=== PATIENT | female | born 1965 | race Two or more races ===

== ENCOUNTER 2024-09-27 13:12 | Inpatient (IN) | payer OTHER ==
[~2024-09-27] VITALS: Ht 167.6 cm; Wt 48.5 kg
[2024-09-27] MEDS ORDERED: ACETAMINOPHEN 650 MG/SUPP.RECT RC ONE (13:33)
[2024-09-27 13:43] LABS: BASOPHILS % (AUTO) 0.1 % (0.0-2.0); HEMATOCRIT 44 % (33-45); HEMOGLOBIN 14.6 g/dL (11.5-14.8); LYMPHOCYTES # (AUTO) 2.1 K/uL (0.8-4.8); LYMPHOCYTES % (AUTO) 11.8 % (20.0-44.0); MEAN CORPUSCULAR HEMOGLOBIN 31 PG (26.0-33.0); MEAN CORPUSCULAR HGB CONC 33 g/dl (31.0-36.0); MEAN CORPUSCULAR VOLUME 93 fL (82-100); MONOCYTES # (AUTO) 2.4 K/uL (0.1-1.30); MONOCYTES % (AUTO) 13.7 % (2.0-12.0); NEUTROPHILS # (AUTO) 13.2 K/uL (1.8-8.9); NEUTROPHILS % (AUTO) 74.4 % (43.0-81.0); PLATELET COUNT (AUTO) 245 K/uL (150-450); RED BLOOD CELL COUNT(AUTO) 4.76 MIL/uL (4.0-5.2); RED CELL DISTRIBUTION WIDTH 15.3 % (11.5-15.0); WHITE BLOOD COUNT (AUTO) 17.8 K/uL (4.3-11.0)
[2024-09-27 13:45] VITALS: O2SAT 95
[2024-09-27] MEDS ORDERED: PIPERACI/TAZO 3.375GM/D5W 50ML PB IV ONE (13:53)
[2024-09-27 14:06] LABS: ALANINE AMINOTRANSFERASE 20 U/L (12-78); ALBUMIN 2.8 g/dL (3.4-5.0); ALKALINE PHOSPHATASE 139 U/L (46-116); ASPARTATE AMINOTRANSFERASE 36 U/L (15-37); BILIRUBIN,DIRECT 0.1 mg/dL (0.0-0.2); BILIRUBIN,TOTAL 0.3 mg/dL (0.2-1.0); CALCIUM, SERUM 9.6 mg/dL (8.5-10.1); CHLORIDE 105 mmol/L (98-107); GLUCOSE 264 mg/dL (74-106); POTASSIUM 3.6 mmol/L (3.5-5.1); SODIUM SERUM 146 mmol/L (136-145); TOTAL PROTEIN, SERUM 9.2 g/dL (6.4-8.2); UREA NITROGEN, BLOOD 25 mg/dL (7-18)
[2024-09-27] MEDS: PIPERACILLIN /TAZOBACTAM 3.375 G in IV D5W 50 ML IV ONE (14:08)
[2024-09-27] MEDS: ACETAMINOPHEN 650 MG/SUPP.RECT RC ONE (14:08)
[2024-09-27] MEDS: IV NS 0.9% 1,000 ML BAG IV ONE ×2 (14:08→18:45)
[2024-09-27 14:14] LABS: INR 2.47 (0.91-1.10); PARTIAL THROMBOPLASTIN TIME 39.8 SEC (24.3-34.3); PROTHROMBIN TIME 24.7 SECS (9.2-11.1)
[2024-09-27 14:15] LABS: CARBON DIOXIDE 22 mmol/L (21-32)
[2024-09-27] MEDS ORDERED: VANCOMYCIN 1 GM /D5W 250 ML PB IV ONE (14:23)
[2024-09-27 14:25] LABS: LACTIC ACID 8.3 mmol/L (0.4-2.0)
[2024-09-27] MEDS: AZITHROMYCIN 500 MG in IV D5W 250 ML IV ONE (14:30)
[2024-09-27] MEDS: VANCOMYCIN 1 GM in IV D5W 250 ML IV ONE (14:39)
[2024-09-27 15:05] LABS: ABG BASE EXCESS -4.7 mmol/L (-2.0-3.0); ABG OXYGEN SATURATION 82.1 % (94.0-98.0); ABG PCO2 32.9 mmHg (32.0-45.0); ABG PH 7.386 (7.350-7.450); ABG PO2 47.4 mmHg (83.0-108.0); ABG TOTAL HEMOGLOBIN 14.7 G/dL (12.0-16.0); COHb 0.3 % (0.5-1.5); MetHb 0.4 % (0.0-1.5); O2Hb 81.5 % (94.0-97.0); SITE, ABG LEFT BRACHIAL
[2024-09-27 15:07] LABS: APPEARANCE,URINE Clear (CLEAR); BILIRUBIN,URINE SMALL (NEGATIVE); BLOOD, URINE Large Ery/uL (NEGATIVE); COLOR,URINE YELLOW (YELLOW); KETONES,URINE Trace mg/dL (NEGATIVE); LEUKOCYTE ESTERASE ,URINE Small (NEGATIVE); NITRITE, URINE Negative (NEGATIVE); PH,URINE 5.5 (5.0-8.0); PROTEIN,URINE 100 mg/dl (NEGATIVE); UGLUCOSE Negative (NEGATIVE); UROBILINOGEN,URINE 0.2 EU/dL (0.2)
[2024-09-27 15:25] LABS: ADD URINE CULTURE YES; BACTERIA,URINE Few /HPF (None Seen); RBC,URINE 21-50 /HPF (0-2); SQUAMOUS EPITHELIAL CELL,UR Moderate /HPF (None Seen)
[2024-09-27 15:54] VITALS: O2SAT 97
[2024-09-27] MEDS ORDERED: ASPIRIN 325 MG TABLET ONE (17:05)
[2024-09-27] MEDS: ASPIRIN 325 MG TABLET PO ONE (17:10)
[2024-09-27 17:25] VITALS: O2SAT 98
[2024-09-27] MEDS ORDERED: ACET325T53 PO (17:27)
[2024-09-27] MEDS ORDERED: DIVA125T2 PO (17:27)
[2024-09-27] MEDS ORDERED: BISA10SU11 RC (17:27)
[2024-09-27] MEDS ORDERED: TRAM50TA2 PO (17:27)
[2024-09-27] MEDS ORDERED: ACET-73 PO (17:27)
[2024-09-27] MEDS ORDERED: SERT25TA5 PO (17:27)
[2024-09-27] MEDS ORDERED: LEVO125T8 PO (17:27)
[2024-09-27] MEDS ORDERED: DOCU100C36 PO (17:27)
[2024-09-27] MEDS ORDERED: SENN8.6T19 PO (17:27)
[2024-09-27] MEDS ORDERED: MIRT-121 PO (17:27)
[2024-09-27] MEDS ORDERED: NYST60PO TP (17:27)
[2024-09-27] MEDS ORDERED: POLY119P17 PO (17:27)
[2024-09-27] MEDS ORDERED: TRAZ-257 PO (17:27)
[2024-09-27] MEDS ORDERED: PANT40TA49 PO (17:27)
[2024-09-27] MEDS ORDERED: MULT-213 PO (17:27)
[2024-09-27] MEDS: ENOXAPARIN SODIUM 40 MG/0.4 ML DISP.SYRIN SQ ONE (17:47)
[2024-09-27] MEDS ORDERED: Z GUARD REMEDY 4 OZ OINT TP PRN (18:00)
[2024-09-27] MEDS ORDERED: ZOLPIDEM TARTRATE 5 MG TABLET PO PRN (18:00)
[2024-09-27] MEDS ORDERED: ONDANSETRON HCL/PF 4 MG/2 ML VIAL IVP PRN (18:00)
[2024-09-27] MEDS ORDERED: MAG HYDROX/AL HYDROX/SIMETH 30 ML UDC PO PRN (18:00)
[2024-09-27] MEDS ORDERED: ACETAMINOPHEN 325 MG TABLET PO PRN ×2 (18:00→18:30)
[2024-09-27] MEDS ORDERED: MAGNESIUM HYDROXIDE 30 ML UDC PO PRN (18:00)
[2024-09-27] MEDS ORDERED: BISACODYL SUPP (10 MG) 10 MG/SUPP.RECT SUPP.RECT RC PRN (18:30)
[2024-09-27] MEDS ORDERED: SENNOSIDES 8.6 MG TABLET PO PRN (18:30)
[2024-09-27] MEDS ORDERED: ACETAMINOPHEN ES 500 MG TABLET PO PRN (18:30)
[2024-09-27 19:20] VITALS: O2SAT 98
[2024-09-27] MEDS: ZOSYN IVPB 2.25 G in IV D5W 50ml IV SCH (20:44)
[2024-09-27 21:00] VITALS: O2SAT 98
[2024-09-27] MEDS ORDERED: METOPROLOL TARTRATE 25 MG TABLET ONE (21:41)
[2024-09-27] MEDS: METOPROLOL TARTRATE 25 MG TABLET PO SCH (21:51)
[2024-09-27 22:41] VITALS: O2SAT 98
[2024-09-27] MEDS ORDERED: TRAZODONE 50 MG TABLET ONE (23:29)
[2024-09-27] MEDS: TRAZODONE 50 MG TABLET PO SCH (23:33)
[2024-09-28] VITALS (44 sets, daily range): BP systolic 39–147; BP diastolic 22–110; TEMP 97.2–98.5; O2SAT 90–100
[2024-09-28] MEDS: POLYETHYLENE GLYCOL 3350 17 GM POWD.PACK PO SCH (00:45)
[2024-09-28] MEDS: IV NS 0.9% 1,000 ML IV PRN (00:59)
[2024-09-28 03:46] LABS: BASOPHILS % (AUTO) 0.1 % (0.0-2.0); HEMATOCRIT 38 % (33-45); HEMOGLOBIN 12.7 g/dL (11.5-14.8); LYMPHOCYTES # (AUTO) 0.8 K/uL (0.8-4.8); LYMPHOCYTES % (AUTO) 10.2 % (20.0-44.0); MEAN CORPUSCULAR HEMOGLOBIN 31 PG (26.0-33.0); MEAN CORPUSCULAR HGB CONC 33 g/dl (31.0-36.0); MEAN CORPUSCULAR VOLUME 92 fL (82-100); MONOCYTES # (AUTO) 0.8 K/uL (0.1-1.30); MONOCYTES % (AUTO) 10.2 % (2.0-12.0); NEUTROPHILS % (AUTO) 79.5 % (43.0-81.0); PLATELET COUNT (AUTO) 125 K/uL (150-450); RED BLOOD CELL COUNT(AUTO) 4.18 MIL/uL (4.0-5.2); RED CELL DISTRIBUTION WIDTH 14.8 % (11.5-15.0); WHITE BLOOD COUNT (AUTO) 7.5 K/uL (4.3-11.0)
[2024-09-28 04:02] LABS: LACTIC ACID 1.4 mmol/L (0.4-2.0)
[2024-09-28 04:20] LABS: CALCIUM, SERUM 8.5 mg/dL (8.5-10.1); CREATININE 1.6 mg/dL (0.6-1.3); MAGNESIUM 1.7 mg/dL (1.8-2.4); PHOSPHORUS 2.9 mg/dL (2.5-4.9)
[2024-09-28 04:29] LABS: POTASSIUM 2.8 mmol/L (3.5-5.1)
[2024-09-28] MEDS: POTASSIUM CHLORIDE 20 MEQ POWDER PACKET PO ONE (04:47)
[2024-09-28] MEDS: POTASSIUM CL. PREMIX PERIPHER. 50 ML IV SCH (04:47)
[2024-09-28 04:54] LABS: THYROID STIMULATING HORMONE 0.02 uIU/mL (0.358-3.74)
[2024-09-28] MEDS ORDERED: IV NS 0.9% 250 ML IV PRN (07:00)
[2024-09-28] MEDS: PANTOPRAZOLE 40 MG TABLET.DR PO SCH (07:55)
[2024-09-28] MEDS: LEVOTHYROXINE SODIUM 125 MCG TABLET PO SCH (07:55)
[2024-09-28] MEDS: MULTIVIT W/MINERALS 1 TAB TABLET PO SCH (08:31)
[2024-09-28] MEDS: DOCUSATE SODIUM 100 MG CAPSULE PO SCH (08:31)
[2024-09-28] MEDS: DIVALPROEX SODIUM 125 MG TABLET.DR PO SCH (08:32)
[2024-09-28] MEDS: SERTRALINE HCL 25 MG TABLET PO SCH (08:32)
[2024-09-28] MEDS: NYSTATIN TOP POWDER 15 GM BOTTLE TP SCH (08:33)
[2024-09-28] MEDS: ASPIRIN 325 MG TABLET PO SCH (09:22)
[2024-09-28] MEDS: IPRATROPIUM NEB FS 0.5 MG/2.5 ML AMPUL.NEB NEB SCH (09:30)
[2024-09-28] MEDS: ACETYLCYSTEINE 10% SOLN 400 MG/4 ML VIAL NEB SCH (09:30)
[2024-09-28] MEDS: POTASSIUM CHLORIDE 20 MEQ TAB.PRT.SR PO SCH (10:00)
[2024-09-28] MEDS: Magnesium 1GM/D5W 100ML PREMIX 100 ML IV SCH (10:00)
[2024-09-28] MEDS: ATORVASTATIN 40 MG TABLET PO SCH (10:01)
[2024-09-28] MEDS ORDERED: HEPARIN SODIUM,PORCINE/PF 50 UNIT/5 ML DISP.SYRIN IV ONE (11:30)
[2024-09-28] MEDS: HEPARIN SODIUM, PORCINE 5000 UNITS/1 ML VIAL IV ONE (12:23)
[2024-09-28] MEDS: HEPARIN INFUSION/D5W 500 ML IV PRN (12:42)
[2024-09-28] MEDS: IV 1/2NS 1000 ML 1,000 ML IV SCH (13:18)
[2024-09-28] MEDS: TRAMADOL HCL 50 MG TABLET PO PRN (13:32)
[2024-09-28] MEDS: VANCOMYCIN 750 MG in IV D5W 250 ML IV SCH (14:03)
[2024-09-28] MEDS ORDERED: VANCOMYCIN 500 MG in IV D5W 100ml IV SCH (15:00)
[2024-09-28] MEDS ORDERED: ENOXAPARIN SODIUM 40 MG/0.4 ML DISP.SYRIN SQ SCH ×2 (16:00→18:00)
[2024-09-28] MEDS ORDERED: PHENYLEPHRINE 50 MG in IV NS 0.9% 245 ML IV PRN (21:00)
[2024-09-28] MEDS: PHENYLEPHRINE 50 MG in IV NS 0.9% 245 ML IV PRN (21:06)
[2024-09-29] VITALS (103 sets, daily range): BP systolic 50–200; BP diastolic 16–173; TEMP 97.2–98.2; O2SAT 93–100
[2024-09-29 07:05] LABS: BASOPHILS % (AUTO) 0.2 % (0.0-2.0); HEMATOCRIT 45 % (33-45); HEMOGLOBIN 14.2 g/dL (11.5-14.8); LYMPHOCYTES # (AUTO) 0.7 K/uL (0.8-4.8); LYMPHOCYTES % (AUTO) 3.2 % (20.0-44.0); MEAN CORPUSCULAR HEMOGLOBIN 31 PG (26.0-33.0); MEAN CORPUSCULAR HGB CONC 32 g/dl (31.0-36.0); MEAN CORPUSCULAR VOLUME 96 fL (82-100); MONOCYTES # (AUTO) 1.1 K/uL (0.1-1.30); MONOCYTES % (AUTO) 4.8 % (2.0-12.0); NEUTROPHILS % (AUTO) 91.8 % (43.0-81.0); PLATELET COUNT (AUTO) 219 K/uL (150-450); RED BLOOD CELL COUNT(AUTO) 4.66 MIL/uL (4.0-5.2); WHITE BLOOD COUNT (AUTO) 22.9 K/uL (4.3-11.0)
[2024-09-29] MEDS: PIPERCILLIN/TAZOBACTAM 2.25GM/D5W 50MLPB IV ONE (07:46)
[2024-09-29 07:49] LABS: ALBUMIN 1.8 g/dL (3.4-5.0); BILIRUBIN,TOTAL 0.3 mg/dL (0.2-1.0); CALCIUM, SERUM 8.8 mg/dL (8.5-10.1); CREATININE 1.6 mg/dL (0.6-1.3); MAGNESIUM 2.7 mg/dL (1.8-2.4); PHOSPHORUS 4.8 mg/dL (2.5-4.9); POTASSIUM 4.9 mmol/L (3.5-5.1); TOTAL PROTEIN, SERUM 7.4 g/dL (6.4-8.2)
[2024-09-29 08:20] LABS: ABG OXYGEN SATURATION 99.7 % (94.0-98.0); SITE, ABG RIGHT RADIAL
[2024-09-29 08:29] LABS: ABG BASE EXCESS -13.8 mmol/L (-2.0-3.0); ABG PCO2 40.6 mmHg (32.0-45.0); ABG PH 7.163 (7.350-7.450); ABG PO2 360.6 mmHg (83.0-108.0); ABG TOTAL HEMOGLOBIN 13.6 G/dL (12.0-16.0); COHb 0.5 % (0.5-1.5); MetHb 0.3 % (0.0-1.5); O2Hb 98.9 % (94.0-97.0)
[2024-09-29] MEDS: LEVOTHYROXINE INJ 100 MCG VIAL IV SCH (08:56)
[2024-09-29] MEDS: PANTOPRAZOLE 40 MG VIAL IV SCH (08:56)
[2024-09-29 10:19] LABS: BAND % (MANUAL) 8 % (0.0-5.0); LYMPHOCYTES % (MANUAL) 2 % (16-48); MONOCYTES % (MANUAL) 2 % (0-11.0); NEUTROPHILS % (MANUAL) 88 (42-76); PLATELET ESTIMATE ADEQUATE
[2024-09-29] MEDS: IV 1/2NS 1000 ML 1,000 ML IV PRN (10:35)
[2024-09-29 11:24] LABS: ABG BASE EXCESS -11.7 mmol/L (-2.0-3.0); ABG PCO2 37.4 mmHg (32.0-45.0); ABG PH 7.225 (7.350-7.450); ABG PO2 108.6 mmHg (83.0-108.0); ABG TOTAL HEMOGLOBIN 13.6 G/dL (12.0-16.0); MetHb 0.2 % (0.0-1.5); O2Hb 97.8 % (94.0-97.0); SITE, ABG RIGHT RADIAL
[2024-09-29] MEDS: methylPREDNISolone SOD SUCC 125 MG/2ML VIAL IV SCH (14:28)
[2024-09-29] MEDS: Sodium Bicarbonate 100 MEQ in IV D5W 1,000 ML IV SCH (15:18)
[2024-09-29] MEDS: ZOSYN IVPB 3.375 G in IV D5W 50ml IV SCH (20:03)
[2024-09-29] MEDS: MUPIROCIN OINT 2% 22 GM TUBE NS SCH (21:06)
[2024-09-30] VITALS (103 sets, daily range): BP systolic 106–143; BP diastolic 45–87; TEMP 97.8–99.6; O2SAT 89–100
[2024-09-30] MEDS: methylPREDNISolone SOD SUCC 125 MG/2ML VIAL IV SCH (01:33)
[2024-09-30 04:05] LABS: BASOPHILS % (AUTO) 0.1 % (0.0-2.0); HEMATOCRIT 34 % (33-45); LYMPHOCYTES # (AUTO) 0.5 K/uL (0.8-4.8); LYMPHOCYTES % (AUTO) 3.2 % (20.0-44.0); MEAN CORPUSCULAR HEMOGLOBIN 30 PG (26.0-33.0); MEAN CORPUSCULAR HGB CONC 33 g/dl (31.0-36.0); MEAN CORPUSCULAR VOLUME 91 fL (82-100); MONOCYTES # (AUTO) 0.3 K/uL (0.1-1.30); MONOCYTES % (AUTO) 1.9 % (2.0-12.0); NEUTROPHILS # (AUTO) 15.5 K/uL (1.8-8.9); NEUTROPHILS % (AUTO) 94.8 % (43.0-81.0); PLATELET COUNT (AUTO) 215 K/uL (150-450); RED CELL DISTRIBUTION WIDTH 15.4 % (11.5-15.0); WHITE BLOOD COUNT (AUTO) 16.3 K/uL (4.3-11.0)
[2024-09-30 04:23] LABS: CALCIUM, SERUM 8.5 mg/dL (8.5-10.1); CREATININE 2.2 mg/dL (0.6-1.3); MAGNESIUM 2.2 mg/dL (1.8-2.4); PHOSPHORUS 4.1 mg/dL (2.5-4.9); POTASSIUM 3.7 mmol/L (3.5-5.1)
[2024-09-30 09:18] LABS: ABG BASE EXCESS -3.3 mmol/L (-2.0-3.0); ABG OXYGEN SATURATION 98.3 % (94.0-98.0); ABG PCO2 32.2 mmHg (32.0-45.0); ABG PH 7.421 (7.350-7.450); ABG PO2 125.8 mmHg (83.0-108.0); ABG TOTAL HEMOGLOBIN 10.8 G/dL (12.0-16.0); COHb 0.2 % (0.5-1.5); MetHb 0.2 % (0.0-1.5); O2Hb 97.9 % (94.0-97.0); SITE, ABG RIGHT RADIAL
[2024-09-30] MEDS: IV D5/ 0.9% NACL 1,000 ML IV PRN (11:41)
[2024-10-01] VITALS (42 sets, daily range): BP systolic 108–143; BP diastolic 66–98; TEMP 98.1–98.8; O2SAT 94–100
[2024-10-01 04:45] LABS: BASOPHILS % (AUTO) 0.2 % (0.0-2.0); HEMATOCRIT 31 % (33-45); HEMOGLOBIN 10.7 g/dL (11.5-14.8); LYMPHOCYTES # (AUTO) 0.5 K/uL (0.8-4.8); LYMPHOCYTES % (AUTO) 6.1 % (20.0-44.0); MEAN CORPUSCULAR HEMOGLOBIN 31 PG (26.0-33.0); MEAN CORPUSCULAR HGB CONC 34 g/dl (31.0-36.0); MEAN CORPUSCULAR VOLUME 90 fL (82-100); MONOCYTES # (AUTO) 0.3 K/uL (0.1-1.30); MONOCYTES % (AUTO) 4.3 % (2.0-12.0); NEUTROPHILS # (AUTO) 6.8 K/uL (1.8-8.9); NEUTROPHILS % (AUTO) 89.4 % (43.0-81.0); PLATELET COUNT (AUTO) 147 K/uL (150-450); RED BLOOD CELL COUNT(AUTO) 3.47 MIL/uL (4.0-5.2); RED CELL DISTRIBUTION WIDTH 15.3 % (11.5-15.0); WHITE BLOOD COUNT (AUTO) 7.6 K/uL (4.3-11.0)
[2024-10-01 05:02] LABS: ALBUMIN 1.6 g/dL (3.4-5.0); BILIRUBIN,TOTAL 0.3 mg/dL (0.2-1.0); CALCIUM, SERUM 8.6 mg/dL (8.5-10.1); CREATININE 2.3 mg/dL (0.6-1.3); MAGNESIUM 2.2 mg/dL (1.8-2.4); PHOSPHORUS 3.8 mg/dL (2.5-4.9); POTASSIUM 3.1 mmol/L (3.5-5.1)
[2024-10-01] MEDS: LEVOTHYROXINE SODIUM 100 MCG TABLET PO SCH (07:30)
[2024-10-01] MEDS: PANTOPRAZOLE 40 MG TABLET.DR PO SCH (08:22)
[2024-10-01] MEDS: VANCOMYCIN 500 MG in IV D5W 100ml IV SCH ×2 (08:33→21:38)
[2024-10-01] MEDS: IV D5W 1,000 ML IV PRN (09:30)
[2024-10-01] MEDS: POTASSIUM CL. PREMIX PERIPHER. 50 ML IV SCH (09:30)
[2024-10-02] VITALS (16 sets, daily range): BP systolic 130–159; BP diastolic 78–87; TEMP 97.5–98.8; O2SAT 93–100
[2024-10-02 04:36] LABS: BASOPHILS % (AUTO) 0.2 % (0.0-2.0); HEMATOCRIT 29 % (33-45); HEMOGLOBIN 9.5 g/dL (11.5-14.8); LYMPHOCYTES # (AUTO) 0.5 K/uL (0.8-4.8); LYMPHOCYTES % (AUTO) 6.3 % (20.0-44.0); MEAN CORPUSCULAR HEMOGLOBIN 31 PG (26.0-33.0); MEAN CORPUSCULAR HGB CONC 34 g/dl (31.0-36.0); MEAN CORPUSCULAR VOLUME 91 fL (82-100); MONOCYTES # (AUTO) 0.7 K/uL (0.1-1.30); MONOCYTES % (AUTO) 8.1 % (2.0-12.0); NEUTROPHILS # (AUTO) 7.2 K/uL (1.8-8.9); NEUTROPHILS % (AUTO) 85.4 % (43.0-81.0); PLATELET COUNT (AUTO) 149 K/uL (150-450); RED BLOOD CELL COUNT(AUTO) 3.12 MIL/uL (4.0-5.2); RED CELL DISTRIBUTION WIDTH 15.1 % (11.5-15.0); WHITE BLOOD COUNT (AUTO) 8.4 K/uL (4.3-11.0)
[2024-10-02 05:47] LABS: BILIRUBIN,TOTAL 0.3 mg/dL (0.2-1.0); CALCIUM, SERUM 7.8 mg/dL (8.5-10.1); CREATININE 2.1 mg/dL (0.6-1.3); POTASSIUM 2.9 mmol/L (3.5-5.1); TOTAL PROTEIN, SERUM 5.2 g/dL (6.4-8.2)
[2024-10-02 05:55] LABS: ALBUMIN 1.4 g/dL (3.4-5.0)
[2024-10-02 06:10] LABS: MAGNESIUM 1.8 mg/dL (1.8-2.4)
[2024-10-02 09:08] LABS: PTH, INTACT 20 pg/mL (15-65)
[2024-10-02] MEDS: POTASSIUM CL. PREMIX PERIPHER. 50 ML IV SCH (10:02)
[2024-10-02] MEDS: JEVITY 1.2 CAL 1,000 ML BOTTLE GT PRN (17:47)
[2024-10-02] MEDS: MEROPENEM 500 MG in IV NS 0.9% 50 ML IV ONE (22:06)
[2024-10-03] VITALS (15 sets, daily range): BP systolic 129–138; BP diastolic 80–84; TEMP 97.7–98.1; O2SAT 94–100
[2024-10-03 06:08] LABS: *SPE A/G RATIO 0.5 (0.7-1.7); *SPE ALBUMIN 1.8 g/dL (2.9-4.4); *SPE ALPHA-1-GLOBULIN 0.4 g/dL (0.0-0.4); *SPE ALPHA-2-GLOBULIN 0.4 g/dL (0.4-1.0); *SPE BETA GLOBULIN 1.7 g/dL (0.7-1.3); *SPE GLOBULIN, TOTAL 3.6 g/dL (2.2-3.9); *SPE M-SPIKE 1.1 g/dL (Not Observed); *SPE PROTEIN TOTAL 5.4 g/dL (6.0-8.5); *SPEGAMMA GLOBULIN 1.1 g/dL (0.4-1.8)
[2024-10-03 08:00] LABS: BASOPHILS % (AUTO) 0.1 % (0.0-2.0); HEMATOCRIT 38 % (33-45); HEMOGLOBIN 12.7 g/dL (11.5-14.8); LYMPHOCYTES # (AUTO) 0.6 K/uL (0.8-4.8); LYMPHOCYTES % (AUTO) 6.3 % (20.0-44.0); MEAN CORPUSCULAR HEMOGLOBIN 30 PG (26.0-33.0); MEAN CORPUSCULAR HGB CONC 34 g/dl (31.0-36.0); MEAN CORPUSCULAR VOLUME 89 fL (82-100); MONOCYTES # (AUTO) 0.9 K/uL (0.1-1.30); MONOCYTES % (AUTO) 9.2 % (2.0-12.0); NEUTROPHILS # (AUTO) 8.1 K/uL (1.8-8.9); NEUTROPHILS % (AUTO) 84.4 % (43.0-81.0); PLATELET COUNT (AUTO) 255 K/uL (150-450); WHITE BLOOD COUNT (AUTO) 9.6 K/uL (4.3-11.0)
[2024-10-03 08:33] LABS: CALCIUM, SERUM 8.6 mg/dL (8.5-10.1); CREATININE 1.9 mg/dL (0.6-1.3); MAGNESIUM 1.9 mg/dL (1.8-2.4); PHOSPHORUS 3.6 mg/dL (2.5-4.9); POTASSIUM 3.8 mmol/L (3.5-5.1)
[2024-10-03] MEDS: MEROPENEM 500 MG in IV NS 0.9% 50 ML IV SCH (09:42)
[2024-10-03 10:51] LABS: EOSINOPHILS % (MANUAL) 1 % (0-4); LYMPHOCYTES % (MANUAL) 8 % (16-48); MONOCYTES % (MANUAL) 7 % (0-11.0); MYELOCYTES % 1 % (0-0)
[2024-10-03 10:52] LABS: NEUTROPHILS % (MANUAL) 83 (42-76); PLATELET ESTIMATE ADEQUATE
[2024-10-04] VITALS (14 sets, daily range): BP systolic 125–135; BP diastolic 78–88; TEMP 97.5–98.4; O2SAT 92–99
[2024-10-04 07:51] LABS: CALCIUM, SERUM 8.9 mg/dL (8.5-10.1); CREATININE 1.7 mg/dL (0.6-1.3); POTASSIUM 4.1 mmol/L (3.5-5.1)
[2024-10-04] MEDS: FREE WATER VIA TUBE FEEDING GT SCH (08:19)
[2024-10-05] VITALS (7 sets, daily range): BP systolic 133–145; BP diastolic 76–86; TEMP 97.5–97.8; O2SAT 94–97
[2024-10-05 09:15] LABS: CALCIUM, SERUM 8.2 mg/dL (8.5-10.1); CREATININE 1.5 mg/dL (0.6-1.3); POTASSIUM 4.1 mmol/L (3.5-5.1)
[2024-10-05 09:57] LABS: APPEARANCE,URINE CLEAR (CLEAR); BILIRUBIN,URINE NEGATIVE (NEGATIVE); BLOOD, URINE 1+ Ery/uL (NEGATIVE); COLOR,URINE YELLOW (YELLOW); KETONES,URINE NEGATIVE (NEGATIVE); LEUKOCYTE ESTERASE ,URINE TRACE (NEGATIVE); NITRITE, URINE NEGATIVE (NEGATIVE); PH,URINE 5.5 (5.0-8.0); PROTEIN,URINE NEGATIVE (NEGATIVE); UGLUCOSE NEGATIVE (NEGATIVE); UROBILINOGEN,URINE 0.2 EU/dL (0.2)
[2024-10-05 10:12] LABS: CREATININE, URINE 29.2 MG/DL (30.0-125.0); URINE TOTAL PROTEIN 24.5 mg/dL (0-11.9)
[2024-10-05] MEDS ORDERED: MAGNESIUM HYDROXIDE 30 ML UDC GT PRN (10:14)
[2024-10-05] MEDS ORDERED: TRAMADOL HCL 50 MG TABLET GT PRN (10:15)
[2024-10-05] MEDS ORDERED: MAG HYDROX/AL HYDROX/SIMETH 30 ML UDC GT PRN (10:16)
[2024-10-05] MEDS ORDERED: SENNOSIDES 8.6 MG TABLET GT PRN (10:17)
[2024-10-05] MEDS ORDERED: ACETAMINOPHEN 650 MG/20.3 ML UDC GT PRN ×2 (10:30)
[2024-10-05 10:32] LABS: ADD URINE CULTURE NO; BACTERIA,URINE Rare /HPF (None Seen); RBC,URINE 0-2 /HPF (0-2); TRICHOMONAS,URINE None Seen /HPF (None Seen); WBC,URINE 0-2 /HPF (0-3); YEAST,URINE Few /HPF (None Seen)
[2024-10-05 10:33] LABS: CALCIUM OXALATE CRYSTALS,UR None Seen /HPF (None Seen); SQUAMOUS EPITHELIAL CELL,UR None Seen /HPF (None Seen)
[2024-10-05 10:39] LABS: EOSINOPHIL,URINE None Seen
[2024-10-05 11:18] LABS: APPEARANCE,URINE CLEAR (CLEAR); BILIRUBIN,URINE NEGATIVE (NEGATIVE); BLOOD, URINE TRACE-INTA Ery/uL (NEGATIVE); COLOR,URINE YELLOW (YELLOW); KETONES,URINE NEGATIVE (NEGATIVE); LEUKOCYTE ESTERASE ,URINE NEGATIVE (NEGATIVE); NITRITE, URINE NEGATIVE (NEGATIVE); PROTEIN,URINE NEGATIVE (NEGATIVE); UGLUCOSE NEGATIVE (NEGATIVE); UROBILINOGEN,URINE 0.2 EU/dL (0.2)
[2024-10-05 11:23] LABS: ADD URINE CULTURE YES; BACTERIA,URINE Rare /HPF (None Seen); RBC,URINE 0-2 /HPF (0-2); SQUAMOUS EPITHELIAL CELL,UR None Seen /HPF (None Seen); YEAST,URINE Many /HPF (None Seen)
[2024-10-05 11:48] LABS: EOSINOPHIL,URINE None Seen
[2024-10-05 12:18] LABS: CREATININE, URINE 18.9 MG/DL (30.0-125.0); URINE TOTAL PROTEIN 18.2 mg/dL (0-11.9)
[2024-10-05] MEDS: DOCUSATE SODIUM LIQ 100 MG/10 ML UDC GT SCH (12:21)
[2024-10-05] MEDS: METOPROLOL TARTRATE 25 MG TABLET GT SCH (16:35)
[2024-10-05] MEDS: DIVALPROEX SODIUM 125 MG CAP.SPRINK GT SCH (16:35)
[2024-10-05] MEDS: TRAZODONE 50 MG TABLET GT SCH (21:13)
[2024-10-05] MEDS: POLYETHYLENE GLYCOL 3350 17 GM POWD.PACK GT SCH (21:13)
[2024-10-06 04:00] VITALS: BP 150/86; TEMP 97.5; O2SAT 97
[2024-10-06 06:57] LABS: BASOPHILS % (AUTO) 0.1 % (0.0-2.0); EOSINOPHILS % (AUTO) 0.1 % (0.0-6.0); HEMATOCRIT 38 % (33-45); HEMOGLOBIN 12.7 g/dL (11.5-14.8); LYMPHOCYTES # (AUTO) 0.5 K/uL (0.8-4.8); LYMPHOCYTES % (AUTO) 2.5 % (20.0-44.0); MEAN CORPUSCULAR HEMOGLOBIN 30 PG (26.0-33.0); MEAN CORPUSCULAR HGB CONC 33 g/dl (31.0-36.0); MEAN CORPUSCULAR VOLUME 89 fL (82-100); MONOCYTES # (AUTO) 0.6 K/uL (0.1-1.30); NEUTROPHILS % (AUTO) 94.3 % (43.0-81.0); PLATELET COUNT (AUTO) 399 K/uL (150-450); RED BLOOD CELL COUNT(AUTO) 4.27 MIL/uL (4.0-5.2); RED CELL DISTRIBUTION WIDTH 15.3 % (11.5-15.0); WHITE BLOOD COUNT (AUTO) 20.2 K/uL (4.3-11.0)
[2024-10-06 07:14] LABS: CALCIUM, SERUM 9.1 mg/dL (8.5-10.1); CREATININE 1.4 mg/dL (0.6-1.3); POTASSIUM 4.6 mmol/L (3.5-5.1)
[2024-10-06 08:00] VITALS: BP 144/100; TEMP 98.1; O2SAT 99
[2024-10-06] MEDS: LEVOTHYROXINE SODIUM 100 MCG TABLET GT SCH (08:25)
[2024-10-06] MEDS ORDERED: VANCOMYCIN 500 MG in IV D5W 100ml IV SCH (09:00)
[2024-10-06] MEDS: FREE WATER VIA TUBE FEEDING GT SCH (09:00)
[2024-10-06] MEDS: PANTOPRAZOLE 40 MG/PACK PACK NG SCH (09:18)
[2024-10-06] MEDS: ASPIRIN 325 MG TABLET GT SCH (09:18)
[2024-10-06] MEDS: MULTIVIT W/MINERALS 1 TAB TABLET GT SCH (09:18)
[2024-10-06] MEDS: ATORVASTATIN 40 MG TABLET GT SCH (09:19)
[2024-10-06] MEDS: SERTRALINE HCL 25 MG TABLET GT SCH (09:19)
[2024-10-06 11:22] LABS: BAND % (MANUAL) 1 % (0.0-5.0); LYMPHOCYTES % (MANUAL) 3 % (16-48); MONOCYTES % (MANUAL) 3 % (0-11.0); MYELOCYTES % 1 % (0-0); NEUTROPHILS % (MANUAL) 92 (42-76); PLATELET ESTIMATE ADEQUATE
[2024-10-06 16:00] VITALS: BP 135/88; TEMP 98.2; O2SAT 98
[2024-10-06] MEDS: IV D5W 1,000 ML IV SCH ×2 (18:36→18:37)
[2024-10-06 20:00] VITALS: BP_SYST 133; BP_DIAS 92; BP_DIAS 95; TEMP 97.4; TEMP 97.7; O2SAT 95; O2SAT 97
[2024-10-07] VITALS (7 sets, daily range): BP systolic 130–145; BP diastolic 80–100; TEMP 97.8–97.9; O2SAT 90–100
[2024-10-07 06:36] LABS: EOSINOPHILS # (AUTO) 0.1 K/uL (0.0-0.7); EOSINOPHILS % (AUTO) 0.4 % (0.0-6.0); HEMATOCRIT 39 % (33-45); HEMOGLOBIN 12.6 g/dL (11.5-14.8); LYMPHOCYTES # (AUTO) 1.4 K/uL (0.8-4.8); LYMPHOCYTES % (AUTO) 4.5 % (20.0-44.0); MEAN CORPUSCULAR HEMOGLOBIN 29 PG (26.0-33.0); MEAN CORPUSCULAR HGB CONC 32 g/dl (31.0-36.0); MEAN CORPUSCULAR VOLUME 91 fL (82-100); MONOCYTES % (AUTO) 6.4 % (2.0-12.0); NEUTROPHILS # (AUTO) 28.1 K/uL (1.8-8.9); NEUTROPHILS % (AUTO) 88.7 % (43.0-81.0); PLATELET COUNT (AUTO) 461 K/uL (150-450); RED BLOOD CELL COUNT(AUTO) 4.29 MIL/uL (4.0-5.2)
[2024-10-07 06:47] LABS: CALCIUM, SERUM 9.2 mg/dL (8.5-10.1); CREATININE 1.3 mg/dL (0.6-1.3); POTASSIUM 4.3 mmol/L (3.5-5.1)
[2024-10-07 06:52] LABS: WHITE BLOOD COUNT (AUTO) 31.7 K/uL (4.3-11.0)
[2024-10-07 14:45] LABS: EOSINOPHILS % (MANUAL) 1 % (0-4); LYMPHOCYTES % (MANUAL) 4 % (16-48); MONOCYTES % (MANUAL) 4 % (0-11.0); NEUTROPHILS % (MANUAL) 91 (42-76); PLATELET ESTIMATE ADEQUATE
[2024-10-07 14:46] LABS: ANISOCYTOSIS 1+
[2024-10-07] MEDS ORDERED: METOPROLOL TARTRATE INJ 5 MG/5 ML AMPUL IVP PRN (18:00)
[2024-10-07] MEDS: IV D5W 1,000 ML IV PRN (22:29)
[2024-10-08 04:00] VITALS: BP 131/77; TEMP 97.7; O2SAT 93
[2024-10-08] MEDS: MEROPENEM 500MG/NS 50 ML PB IV ONE (07:54)
[2024-10-08 08:00] VITALS: BP 147/82; TEMP 97.8; O2SAT 97
[2024-10-08 08:16] LABS: BASOPHILS # (AUTO) 0.1 K/uL (0.0-0.2); BASOPHILS % (AUTO) 0.2 % (0.0-2.0); EOSINOPHILS # (AUTO) 0.1 K/uL (0.0-0.7); EOSINOPHILS % (AUTO) 0.5 % (0.0-6.0); HEMATOCRIT 34 % (33-45); HEMOGLOBIN 11.3 g/dL (11.5-14.8); LYMPHOCYTES # (AUTO) 1.3 K/uL (0.8-4.8); LYMPHOCYTES % (AUTO) 4.6 % (20.0-44.0); MEAN CORPUSCULAR HEMOGLOBIN 30 PG (26.0-33.0); MEAN CORPUSCULAR HGB CONC 33 g/dl (31.0-36.0); MEAN CORPUSCULAR VOLUME 90 fL (82-100); MONOCYTES # (AUTO) 1.2 K/uL (0.1-1.30); MONOCYTES % (AUTO) 4.1 % (2.0-12.0); NEUTROPHILS # (AUTO) 26.7 K/uL (1.8-8.9); NEUTROPHILS % (AUTO) 90.6 % (43.0-81.0); PLATELET COUNT (AUTO) 401 K/uL (150-450); RED BLOOD CELL COUNT(AUTO) 3.81 MIL/uL (4.0-5.2); RED CELL DISTRIBUTION WIDTH 14.6 % (11.5-15.0); WHITE BLOOD COUNT (AUTO) 29.5 K/uL (4.3-11.0)
[2024-10-08 08:30] LABS: CALCIUM, SERUM 8.3 mg/dL (8.5-10.1); CREATININE 1.2 mg/dL (0.6-1.3); POTASSIUM 3.6 mmol/L (3.5-5.1)
[2024-10-08 09:35] LABS: EOSINOPHILS % (MANUAL) 1 % (0-4); LYMPHOCYTES % (MANUAL) 2 % (16-48); MONOCYTES % (MANUAL) 3 % (0-11.0); NEUTROPHILS % (MANUAL) 94 (42-76); PLATELET ESTIMATE ADEQUATE
[2024-10-08] MEDS: methylPREDNISolone SOD SUCC 125 MG/2ML VIAL IV SCH (10:07)
[2024-10-08 16:00] VITALS: BP 131/73; TEMP 97.8; O2SAT 97
[2024-10-09] VITALS (8 sets, daily range): BP systolic 102–144; BP diastolic 65–100; TEMP 97.7–98.6; O2SAT 93–97
[2024-10-09] MEDS: FREE WATER VIA TUBE FEEDING GT SCH (08:44)
[2024-10-10] VITALS (9 sets, daily range): BP systolic 108–116; BP diastolic 56–79; TEMP 97.5–98.2; O2SAT 95–99
[2024-10-10 08:29] LABS: BASOPHILS # (AUTO) 0.1 K/uL (0.0-0.2); BASOPHILS % (AUTO) 0.2 % (0.0-2.0); EOSINOPHILS # (AUTO) 0.1 K/uL (0.0-0.7); EOSINOPHILS % (AUTO) 0.5 % (0.0-6.0); HEMATOCRIT 35 % (33-45); HEMOGLOBIN 11.4 g/dL (11.5-14.8); LYMPHOCYTES # (AUTO) 1.2 K/uL (0.8-4.8); LYMPHOCYTES % (AUTO) 4.5 % (20.0-44.0); MEAN CORPUSCULAR HEMOGLOBIN 30 PG (26.0-33.0); MEAN CORPUSCULAR HGB CONC 33 g/dl (31.0-36.0); MEAN CORPUSCULAR VOLUME 90 fL (82-100); MONOCYTES # (AUTO) 1.1 K/uL (0.1-1.30); MONOCYTES % (AUTO) 4.2 % (2.0-12.0); NEUTROPHILS # (AUTO) 23.3 K/uL (1.8-8.9); NEUTROPHILS % (AUTO) 90.6 % (43.0-81.0); PLATELET COUNT (AUTO) 393 K/uL (150-450); RED BLOOD CELL COUNT(AUTO) 3.83 MIL/uL (4.0-5.2); RED CELL DISTRIBUTION WIDTH 15.3 % (11.5-15.0); WHITE BLOOD COUNT (AUTO) 25.7 K/uL (4.3-11.0)
[2024-10-10 09:30] LABS: CALCIUM, SERUM 8.5 mg/dL (8.5-10.1); CREATININE 1.2 mg/dL (0.6-1.3); POTASSIUM 4.2 mmol/L (3.5-5.1)
[2024-10-10 09:33] LABS: PLATELET ESTIMATE ADEQUATE
[2024-10-10 09:35] LABS: EOSINOPHILS % (MANUAL) 1 % (0-4); LYMPHOCYTES % (MANUAL) 5 % (16-48); MONOCYTES % (MANUAL) 4 % (0-11.0); NEUTROPHILS % (MANUAL) 90 (42-76)
[2024-10-10] MEDS ORDERED: GUAIFENESIN/CODEINE 10 ML UDC GT PRN (20:00)
[2024-10-10] MEDS: GUAIFENESIN/D-METHORPHAN HB 5 ML UDC GT PRN (20:15)
[2024-10-11 00:03] VITALS: O2SAT 96
[2024-10-11 00:18] VITALS: O2SAT 99
[2024-10-11 04:00] VITALS: BP 107/52; TEMP 97.7; O2SAT 99
[2024-10-11 07:15] VITALS: O2SAT 94
[2024-10-11 07:40] VITALS: O2SAT 98
[2024-10-11 07:56] LABS: BASOPHILS % (AUTO) 0.1 % (0.0-2.0); EOSINOPHILS # (AUTO) 0.2 K/uL (0.0-0.7); EOSINOPHILS % (AUTO) 1.1 % (0.0-6.0); HEMATOCRIT 33 % (33-45); HEMOGLOBIN 10.8 g/dL (11.5-14.8); LYMPHOCYTES % (AUTO) 5.2 % (20.0-44.0); MEAN CORPUSCULAR HEMOGLOBIN 30 PG (26.0-33.0); MEAN CORPUSCULAR HGB CONC 33 g/dl (31.0-36.0); MEAN CORPUSCULAR VOLUME 91 fL (82-100); MONOCYTES % (AUTO) 5.2 % (2.0-12.0); NEUTROPHILS # (AUTO) 17.4 K/uL (1.8-8.9); NEUTROPHILS % (AUTO) 88.4 % (43.0-81.0); PLATELET COUNT (AUTO) 338 K/uL (150-450); WHITE BLOOD COUNT (AUTO) 19.6 K/uL (4.3-11.0)
[2024-10-11 09:51] VITALS: BP 124/64
== END 2024-10-11 13:02 | DRG 720 ==
LOC: ER 13:15 → ICU 22:58 → TELE-TD 10-01 12:20 → TELE1 10-02 09:42 → MEDSG1 10-03 10:34 → UNDODISIN 10-05 20:45
PROVIDERS: ADMIT Student in an Organized Health Care Education/Training Program; ATTEND Internal Medicine
PROC: 5A09457 Assistance with Respiratory Ventilation, 24-96 Consecutive Hours, Continuous Positive Airway Pressure (ICD-10-PCS; principal; 2024-09-28)
PROC: 0DH63UZ Insertion of Feeding Device into Stomach, Percutaneous Approach (ICD-10-PCS; 2024-10-07)
DX: A41.9 Sepsis, unspecified organism (principal); N17.0 Acute kidney failure with tubular necrosis; J96.01 Acute respiratory failure with hypoxia; G92.8 Other toxic encephalopathy; J15.69 Pneumonia due to other Gram-negative bacteria; E43 Unspecified severe protein-calorie malnutrition; D69.6 Thrombocytopenia, unspecified; E87.0 Hyperosmolality and hypernatremia; I21.A1 Myocardial infarction type 2; E44.0 Moderate protein-calorie malnutrition; Z66 Do not resuscitate; K29.70 Gastritis, unspecified, without bleeding; Z20.822 Contact with and (suspected) exposure to COVID-19; J44.0 Chronic obstructive pulmonary disease with (acute) lower respiratory infection; N39.0 Urinary tract infection, site not specified; K31.7 Polyp of stomach and duodenum; Z88.5 Allergy status to narcotic agent; Z91.011 Allergy to milk products; M89.8X9 Other specified disorders of bone, unspecified site; F41.9 Anxiety disorder, unspecified; F32.A Depression, unspecified; E03.9 Hypothyroidism, unspecified; R41.3 Other amnesia; Z88.8 Allergy status to other drugs, medicaments and biological substances; Z88.4 Allergy status to anesthetic agent; Z79.890 Hormone replacement therapy; Z79.899 Other long term (current) drug therapy; E83.42 Hypomagnesemia; B96.20 Unspecified Escherichia coli [E. coli] as the cause of diseases classified elsewhere; Z16.12 Extended spectrum beta lactamase (ESBL) resistance; E87.6 Hypokalemia; E86.0 Dehydration; N18.9 Chronic kidney disease, unspecified; I12.9 Hypertensive chronic kidney disease with stage 1 through stage 4 chronic kidney disease, or unspecified chronic kidney disease; Y95 Nosocomial condition; R13.10 Dysphagia, unspecified
CPT/HCPCS: 31720; 36415; 36600; 43246; 70551-TC; 71045-TC; 74230-TC; 76770-TC; 80048-TC; 80053-TC; 80061-TC; 80076-TC; 80202-TC; 81001; 82550-TC; 82553; 82570-TC; 82803-TC; 83605-TC; 83735-TC; 83970; 84100-TC; 84155; 84165; 84300-TC; 84439-TC; 84443-TC; 84484-TC; 85025-TC; 85730-TC; 87040-TC; 87081-TC; 87086-TC; 92526; 92611-TC; 93307-TC; 93970-TC; 94660; 94760-TC; 94761-TC; 94799-TC; 97110-TC; 97112-TC; 97530-TC; 97535-TC; 99082-TC; A4223; G0378; J0456; J0690; J1644; J1650; J2185; J2470; J2543; J2704; J2919; J3370; J3371; J3475; J3480; J3490; J7030; J7042; J7050; J7060; J7070